=== PATIENT | male | born 1970 | race Caucasian/White ===

== ENCOUNTER 2016-11-01 16:30 | Emergency (ER) | payer SELFPAY ==
[2016-11-01] MEDS ORDERED: OXYCODONE-ACETAMINOPHEN 5-325 MG TABLET PO ONE (17:01)
[2016-11-01] MEDS ORDERED: ONDANSETRON 4 MG TAB.RAPDIS PO ONE (17:01)
--- NOTE | 2016-11-01 17:07 | ER Document Report ---
ED Medical Screen (RME) - General Chief Complaint: Low Back Pain Stated Complaint: BACK PAIN Time seen by provider: 17:04 Mode of Arrival: Ambulatory Information source: Patient Notes: 46-year-old male was sweeping and then went forward from the waist to it up Dust into the dust pain and developed a popping and tightness in his low back. He was able to get into the bathtub to try to ease the pain but then he got out of the bathtub and sat down on the toilet and at that point he couldn't almost get off the toilet he had to lay on the floor this occurred at 2:00 pm and when it wasn't getting any better he called EMS to bring him to the hospital. No saddle anesthesia. He does have some tingling in all of his toes. Only other time he had back pain was in the 90s was a twisting injury and he went to physical therapy. TRAVEL OUTSIDE OF THE [place] IN LAST 30 DAYS: No - Related Data Allergies/Adverse Reactions: ibuprofen Allergy (Verified 03/27/16 13:05) Past Medical History - Past Medical History Cardiac Medical History: Reports: Hx Hypercholesterolemia, Hx Hypertension - did not take lisinopril today Denies: Hx Atrial Fibrillation, Hx Congestive Heart Failure, Hx Heart Attack Pulmonary Medical History: Denies: Hx Asthma, Hx Bronchitis, Hx COPD, Hx Pneumonia, Hx Tuberculosis Neurological Medical History: Reports: Hx Migraine. Denies: Hx Seizures Endocrine Medical History: Denies: Hx Diabetes Mellitus Type 1, Hx Diabetes Mellitus Type 2 Renal/ Medical History: Reports: Hx Kidney Stones. Denies: Hx End Stage Renal Disease GI Medical History: Denies: Hx Gastroesophageal Reflux Disease, Hx Hiatal Hernia , Hx Ulcer Musculoskeltal Medical History: Denies Hx Arthritis Psychiatric Medical History: Denies: Hx Attention Deficit Hyperactivity Disorder, Hx Bipolar Disorder, Hx Depression, Hx Schizophrenia Past Surgical History: Reports: Hx Herniorrhaphy - Immunizations Hx Diphtheria, Pertussis, Tetanus Vaccination: Yes Physical Exam - Vital signs Vitals: Temp Pulse Resp BP Pulse Ox 98.4 F 83 18 129/80 H 94 11/01/16 16:56 11/01/16 16:56 11/01/16 16:56 11/01/16 16:56 11/01/16 16:56 Course - Vital Signs Vital signs: Temp Pulse Resp BP Pulse Ox 98.4 F 83 18 129/80 H 94 11/01/16 16:56 11/01/16 16:56 11/01/16 16:56 11/01/16 16:56 11/01/16 16:56
[2016-11-01] MEDS ORDERED: LIDOCAINE 5% (700 MG) TRANSDERMAL ADH..PATCH TP ONE (18:34)
--- NOTE | 2016-11-01 19:15 | ER Document Report ---
ED General - General Chief Complaint: Low Back Pain Stated Complaint: BACK PAIN Mode of Arrival: Ambulatory TRAVEL OUTSIDE OF THE [place] IN LAST 30 DAYS: No - HPI Patient complains to provider of: lower back pain Notes: Patient coming in today for acute mid and right-sided back pain. States he was bending over to get some diastolic the floor when he felt a pop in his back since that time he was able ambulate to the bathroom since that time is difficulty in ambulation and coming to the ER for further evaluation. States his history of bulging disks. Patient denies any urinary or bowel incontinence. Denies any numbness tingling in the perineal region. Patient is sitting crosslegged in the bed upon my evaluation. - Related Data Allergies/Adverse Reactions: ibuprofen Allergy (Verified 03/27/16 13:05) Past Medical History - General Information source: Patient - Social History Smoking Status: Unknown if Ever Smoked Family History: Reviewed & Not Pertinent, Other Patient has suicidal ideation: No Patient has homicidal ideation: No - Past Medical History Cardiac Medical History: Reports: Hx Hypercholesterolemia, Hx Hypertension - did not take lisinopril today Denies: Hx Atrial Fibrillation, Hx Congestive Heart Failure, Hx Heart Attack Pulmonary Medical History: Denies: Hx Asthma, Hx Bronchitis, Hx COPD, Hx Pneumonia, Hx Tuberculosis Neurological Medical History: Reports: Hx Migraine. Denies: Hx Seizures Endocrine Medical History: Denies: Hx Diabetes Mellitus Type 1, Hx Diabetes Mellitus Type 2 Renal/ Medical History: Reports: Hx Kidney Stones. Denies: Hx End Stage Renal Disease, Hx Peritoneal Dialysis GI Medical History: Denies: Hx Gastroesophageal Reflux Disease, Hx Hiatal Hernia , Hx Ulcer Musculoskeltal Medical History: Denies Hx Arthritis Psychiatric Medical History: Denies: Hx Attention Deficit Hyperactivity Disorder, Hx Bipolar Disorder, Hx Depression, Hx Schizophrenia Past Surgical History: Reports: Hx Herniorrhaphy - Immunizations Hx Diphtheria, Pertussis, Tetanus Vaccination: Yes Review of Systems - Review of Systems Constitutional: No symptoms reported EENT: No symptoms reported Cardiovascular: No symptoms reported Respiratory: No symptoms reported Gastrointestinal: No symptoms reported Genitourinary: No symptoms reported Male Genitourinary: No symptoms reported Musculoskeletal: Back pain Skin: No symptoms reported Hematologic/Lymphatic: No symptoms reported Neurological/Psychological: No symptoms reported -: Yes All other systems reviewed and negative Physical Exam - Vital signs Vitals: Temp Pulse Resp BP Pulse Ox 98.4 F 83 18 129/80 H 94 11/01/16 16:56 11/01/16 16:56 11/01/16 16:56 11/01/16 16:56 11/01/16 16:56 Interpretation: Normal - General General appearance: Appears well, Alert - HEENT Head: Normocephalic, Atraumatic Eyes: Normal Pupils: PERRL - Respiratory Respiratory status: No respiratory distress Chest status: Nontender Breath sounds: Normal Chest palpation: Normal - Cardiovascular Rhythm: Regular Heart sounds: Normal auscultation Murmur: No - Abdominal Inspection: Normal Distension: No distension Bowel sounds: Normal Tenderness: Nontender Organomegaly: No organomegaly - Back Back: Normal, Tender - Patient is midline starting at L2 going down to the sacral region. Patient also has has paraspinal tenderness on the right side. Patient has no numbness or tingling in the perineal region no saddle anesthesias upon examination. Deep tendon reflexes at the knee are intact. Babinski is normal. Sensation distal is normal. - Extremities General upper extremity: Normal inspection, Nontender, Normal color, Normal ROM , Normal temperature General lower extremity: Normal inspection, Nontender, Normal color, Normal ROM , Normal temperature, Normal weight bearing. No: Oneida's sign - Neurological Neuro grossly intact: Yes Cognition: Normal Orientation: AAOx4 Caldwell Coma Scale Eye Opening: Spontaneous Caldwell Coma Scale Verbal: Oriented Portia Coma Scale Motor: Obeys Commands Caldwell Coma Scale Total: 15 Speech: Normal Motor strength normal: LUE, RUE, LLE, RLE Sensory: Normal - Psychological Associated symptoms: Normal affect, Normal mood - Skin Skin Temperature: Warm Skin Moisture: Dry Skin Color: Normal Course - Re-evaluation Re-evalutation: 11/01/16 19:13 The patient presents with low back pain without signs of spinal cord compression , cauda equina syndrome, infection, aneurysm, or other serious etiology. The patient is neurologically intact. Given the extremely low risk of these diagnoses further testing and evaluation for these possibilities does not appear to be indicated at this time. The patient has been instructed to return if the symptoms worsen or change in any way. .. - Vital Signs Vital signs: Temp Pulse Resp BP Pulse Ox 98.4 F 83 18 129/80 H 94 11/01/16 16:56 11/01/16 16:56 11/01/16 16:56 11/01/16 16:56 11/01/16 16:56 Discharge - Discharge Clinical Impression: Low back pain Qualifiers: Chronicity: acute Back pain laterality: unspecified Sciatica presence: unspecified whether sciatica present Qualified Code(s): M54.5 - Low back pain Instructions: Low Back Pain ([facility]), Oral Narcotic Medication ([facility]), Stretching Exercises for the Back ([facility]) Additional Instructions: Please follow-up with your primary care physician. This time x-ray showed no serious etiology for your back pain. Rest ice and heat for the initial treatments for any back pain. Symptoms worse come back and see us here in ER. Prescriptions: Lidocaine [Lidoderm 5% (700 mg) Transdermal Patch] 1 patch TP DAILY #30 adh..patch Oxycodone HCl 5 mg PO Q6 #30 tablet Prednisone [Deltasone 20 mg Tablet] 3 tab PO DAILY 5 Days Forms: Return to Work
[2016-11-01] MEDS ORDERED: HYDROMORPHONE HCL INJ/PF 2 MG/ML AMPULE IM ONE (20:02)
[2016-11-01] MEDS ORDERED: PREDNISONE 20 MG TABLET PO ONE (20:03)
[2016-11-01 20:35] VITALS: BP 126/82
== END 2016-11-01 20:15 | disposition home or self-care (01) ==
LOC: ER 16:30
DX: M54.5 Low back pain (principal)
CPT/HCPCS: 99283; 96372; 72110; S0119; J1170; J7512

== ENCOUNTER → 2017-01-30 | Outpatient (CLI) | payer OTHER ==
[2017-01-30 12:10] LABS: CHOLESTEROL 246.94 mg/dL (0-200); Direct HDL 53 mg/dL (>40); TRIGLYCERIDES 187 mg/dL (<150)
[2017-01-30 12:20] LABS: DIRECT LDL 164 mg/dL (<100)
[2017-01-30 12:29] LABS: VLDL CHOLESTEROL 37.4 mg/dL (10-31)
== END ==
LOC: CCC 11:07
DX: E78.4 Other hyperlipidemia (principal)
CPT/HCPCS: 36415; 80061; 83036

== ENCOUNTER → 2017-08-10 | Outpatient (CLI) | payer OTHER ==
[2017-08-10 09:56] LABS: ABSOLUTE EOSINOPHILS # (AUTO) 0.1 10^3/uL (0.0-0.6); ABSOLUTE LYMPHOCYTES (AUTO) 1.2 10^3/uL (0.5-4.7); ABSOLUTE MONOCYTES (AUTO) 0.5 10^3/uL (0.1-1.4); ABSOLUTE NEUT (AUTO) 3.7 10^3/uL (1.7-8.2); BASOPHILS % (AUTO) 0.4 % (0-2); EOSINOPHILS % (AUTO) 2.5 % (0-6); HEMATOCRIT 40.7 % (37.9-51.0); HGB HCT DIFFERENCE 1.3; MEAN CORPUSCULAR HGB CONC 34.5 g/dL (32.0-36.0); MEAN CORPUSCULAR VOLUME 84 fl (80-97); MONOCYTES % (AUTO) 8.5 % (3-13); RED BLOOD COUNT 4.84 10^6/uL (4.35-5.55); RED CELL DISTRIBUTION WIDTH 14.3 % (11.5-14.0); SEGMENTED NEUTROPHILS % (AUTO) 67.6 % (42-78); WHITE BLOOD COUNT 5.5 10^3/uL (4.0-10.5)
[2017-08-10 10:16] LABS: ALANINE AMINOTRANSFERASE 86 U/L (21-72); ALBUMIN 4.7 g/dL (3.5-5.0); ALKALINE PHOSPHATASE 99 U/L (38-126); ANION GAP 15 (5-19); ASPARTATE AMINO TRANSFERASE 46 U/L (17-59); BILIRUBIN,DIRECT 0.3 mg/dL (0.0-0.4); BILIRUBIN,TOTAL 0.6 mg/dL (0.2-1.3); BLOOD UREA NITROGEN 13 mg/dL (7-20); CALCIUM 9.3 mg/dL (8.4-10.2); CARBON DIOXIDE 25 mmol/L (22-30); CHLORIDE 105 mmol/L (98-107); CHOLESTEROL 176.69 mg/dL (0-200); CREATININE RESULT 0.88 mg/dL (0.52-1.25); Direct HDL 42 mg/dL (>40); GLUCOSE 124 mg/dL (75-110); POTASSIUM 3.8 mmol/L (3.6-5.0); SODIUM 145.4 mmol/L (137-145); TOTAL PROTEIN 6.9 g/dL (6.3-8.2); TRIGLYCERIDES 222 mg/dL (<150)
[2017-08-10 10:26] LABS: DIRECT LDL 109 mg/dL (<100)
[2017-08-10 10:29] LABS: VLDL CHOLESTEROL 44.4 mg/dL (10-31)
== END ==
LOC: CCC 09:00
DX: I10 Essential (primary) hypertension (principal); E78.4 Other hyperlipidemia
CPT/HCPCS: 36415; 80053; 80061; 83036; 85025

== ENCOUNTER → 2018-01-26 | Outpatient (CLI) | payer OTHER ==
[2018-01-26 10:40] LABS: ALANINE AMINOTRANSFERASE 66 U/L (21-72); ALBUMIN 4.7 g/dL (3.5-5.0); ALKALINE PHOSPHATASE 90 U/L (38-126); ANION GAP 13 (5-19); ASPARTATE AMINO TRANSFERASE 38 U/L (17-59); BILIRUBIN,DIRECT 0.2 mg/dL (0.0-0.4); BILIRUBIN,TOTAL 0.5 mg/dL (0.2-1.3); BLOOD UREA NITROGEN 11 mg/dL (7-20); CALCIUM 9.7 mg/dL (8.4-10.2); CARBON DIOXIDE 31 mmol/L (22-30); CHLORIDE 102 mmol/L (98-107); CHOLESTEROL 205.65 mg/dL (0-200); GLUCOSE 125 mg/dL (75-110); POTASSIUM 4.1 mmol/L (3.6-5.0); SODIUM 145.7 mmol/L (137-145); TOTAL PROTEIN 7.7 g/dL (6.3-8.2); TRIGLYCERIDES 284 mg/dL (<150)
[2018-01-26 10:50] LABS: DIRECT LDL 126 mg/dL (<100)
[2018-01-26 10:56] LABS: VLDL CHOLESTEROL 56.8 mg/dL (10-31)
== END ==
LOC: CCC 09:34
DX: I10 Essential (primary) hypertension (principal); E78.5 Hyperlipidemia, unspecified
CPT/HCPCS: 36415; 80053; 80061

== ENCOUNTER 2018-05-02 14:34 | Emergency (ER) | payer SELFPAY ==
--- NOTE | 2018-05-02 15:31 | ER Document Report ---
ED Medical Screen (RME) - General TRAVEL OUTSIDE OF THE [place] IN LAST 30 DAYS: No <ELIAZAR PORTER - Last Filed: 05/02/18 15:30> <MITULJUSTIN - Last Filed: 05/02/18 17:55> - General Chief Complaint: Abdominal Pain Stated Complaint: ABDOMINAL PAIN Time Seen by Provider: 05/02/18 15:28 Notes: 47 years old male presents today with abdominal pain, had not had any bowel movement for 12 days, taking Percocet 10 mg a day. And have ventral hernia, 2 inguinal hernias. Nauseous no vomiting. Denies any fever chills or other constitutional symptoms. Distended abdomen visible ventral hernia, positive bowel sounds (ELIAZAR PORTER) - Related Data Allergies/Adverse Reactions: ibuprofen Allergy (Verified 05/02/18 14:35) Past Medical History - Social History Chew tobacco use (# tins/day): No Frequency of alcohol use: Occasional Drug Abuse: None - Past Medical History Cardiac Medical History: Reports: Hx Hypercholesterolemia, Hx Hypertension - did not take lisinopril today Denies: Hx Atrial Fibrillation, Hx Congestive Heart Failure, Hx Heart Attack Pulmonary Medical History: Denies: Hx Asthma, Hx Bronchitis, Hx COPD, Hx Pneumonia, Hx Tuberculosis Neurological Medical History: Reports: Hx Migraine. Denies: Hx Seizures Endocrine Medical History: Denies: Hx Diabetes Mellitus Type 1, Hx Diabetes Mellitus Type 2 Renal/ Medical History: Reports: Hx Kidney Stones. Denies: Hx End Stage Renal Disease, Hx Peritoneal Dialysis GI Medical History: Reports: Hx Hiatal Hernia. Denies: Hx Gastroesophageal Reflux Disease, Hx Ulcer Musculoskeltal Medical History: Denies Hx Arthritis Psychiatric Medical History: Denies: Hx Attention Deficit Hyperactivity Disorder, Hx Bipolar Disorder, Hx Depression, Hx Schizophrenia Past Surgical History: Reports: Hx Herniorrhaphy - Immunizations Hx Diphtheria, Pertussis, Tetanus Vaccination: Yes <ELIAZAR PORTER - Last Filed: 05/02/18 15:30> - Vital signs Vitals: Temp Pulse Resp BP Pulse Ox 98.7 F 96 18 131/75 H 96 05/02/18 14:44 05/02/18 14:44 05/02/18 14:44 05/02/18 14:44 05/02/18 14:44 Course <ELIAZAR PORTER - Last Filed: 05/02/18 15:30> - Laboratory Result Diagrams: 05/02/18 16:32 05/02/18 16:32 <JUSTIN BAUMAN - Last Filed: 05/02/18 17:55> - Re-evaluation Re-evalutation: 05/02/18 17:50 Upon discharge, patient was very adamant about having Dr. Culp sign that he was a second opinion provider on the discharge instruction paper, and I would not be having him sign basic discharge instructions and can write everything for him that is already documented in the EMR system. I explained to him the legalities of a PA/physician relationship and supervising laws within the state. I also thoroughly reviewed that Dr. Culp did document his evaluation of him within my note and upon completion of this note he may call medical records to obtain it. Patient and his mother are continuing to be upset and have no confidence in my or Dr. Culp's medical judgment at this time. Patient has repeatedly threatened lawsuit should something happen when he leaves. (JUSTIN BAUMAN) - Vital Signs Vital signs: Temp Pulse Resp BP Pulse Ox 98.7 F 96 18 131/75 H 96 05/02/18 14:44 05/02/18 14:44 05/02/18 14:44 05/02/18 14:44 05/02/18 14:44 - Laboratory Laboratory results interpreted by me: 05/02/18 05/02/18 05/02/18 14:45 16:32 16:32 Hgb 13.0 L RDW 18.6 H Sodium 145.8 H Glucose 194 H Urine Glucose (UA) >=500 H Doctor's Discharge <ELIAZAR PORTER - Last Filed: 05/02/18 15:30> <JUSTIN BAUMAN - Last Filed: 05/02/18 17:55> - Discharge Clinical Impression: Diastasis recti Condition: Stable Disposition: HOME, SELF-CARE Additional Instructions: Maintain adequate fluid and food intake high fiber diet Stool softener/laxative as directed tylenol if needed Monitor for any worsening symptoms Make sure you are staying hydrated enough to urinate and have normal BM's Recheck with your PCM in 3-5 days Schedule an appointment with a general surgeon for further evaluation and management Return to the ED with any worsening symptoms and/or development of fever, headache, chest pain, palpitations, syncope, shortness of breath, trouble breathing, abdominal pain, n/v/d, blood in stool/urine, weakness, or other worsening symptoms that are concerning to you. Prescriptions: Magnesium Citrate [Citrate of Magnesia 296 ml Bottle] 296 ml PO ONCE PRN #1 bottle PRN Reason: Forms: Elevated Blood Pressure Referrals: [facility] [Primary Care Provider] - Follow up in 3-5 days MARGARITO VANEGAS MD [ACTIVE STAFF] - Follow up as needed
--- NOTE | 2018-05-02 16:18 | RADIOLOGY REPORT (SQ) ---
EXAM DESCRIPTION: KUB/ABDOMEN (SINGLE VIEW) COMPLETED DATE/TIME: 05/02/2018 4:02 pm REASON FOR STUDY: Abdominal pain COMPARISON: None. NUMBER OF VIEWS: One view. TECHNIQUE: Supine radiographic image of the abdomen acquired. LIMITATIONS: None. FINDINGS: BOWEL GAS PATTERN: Normal bowel gas pattern. No dilated loops. CALCIFICATIONS: No suspicious calcifications. SOFT TISSUES: No gross mass or suggestion of organomegaly. HARDWARE: None in the abdomen. BONES: No acute fracture. No worrisome bone lesions. OTHER: No other significant finding. IMPRESSION: NO RADIOGRAPHIC EVIDENCE FOR ACUTE ABDOMINAL DISEASE. TECHNICAL DOCUMENTATION: JOB ID: [id number] [employer]- All Rights Reserved Reading location - IP/workstation name: [email or web address]
[2018-05-02 16:30] LABS: APPEARANCE,URINE CLEAR; BILIRUBIN,URINE NEGATIVE (NEGATIVE); COLOR,URINE YELLOW; GLUCOSE, URINE >=500 mg/dL (NEGATIVE); KETONES,URINE NEGATIVE (NEGATIVE); LEUKOCYTE ESTERASE,URINE NEGATIVE (NEGATIVE); NITRITE,URINE NEGATIVE (NEGATIVE); PROTEIN,URINE NEGATIVE (NEGATIVE); URINE SPECIFIC GRAVITY 1.016; UROBILINOGEN,URINE NEGATIVE mg/dL (<2.0)
[2018-05-02] MEDS ORDERED: HYDROCODONE/ACETAMINOPHEN 5-325 MG TABLET PO ONE (16:40)
[2018-05-02 16:45] LABS: URINE AMPHETAMINES SCREEN NEGATIVE; URINE BARBITURATES SCREEN NEGATIVE; URINE BENZODIAZEPINES SCREEN NEGATIVE; URINE COCAINE SCREEN NEGATIVE; URINE MARIJUANA (THC) SCREEN NEGATIVE; URINE METHADONE SCREEN NEGATIVE; URINE PHENCYCLIDINE SCREEN NEGATIVE
[2018-05-02 16:47] LABS: ABSOLUTE EOSINOPHILS # (AUTO) 0.1 10^3/uL (0.0-0.6); ABSOLUTE LYMPHOCYTES (AUTO) 1.1 10^3/uL (0.5-4.7); ABSOLUTE MONOCYTES (AUTO) 0.5 10^3/uL (0.1-1.4); ABSOLUTE NEUT (AUTO) 3.7 10^3/uL (1.7-8.2); BASOPHILS % (AUTO) 0.3 % (0-2); EOSINOPHILS % (AUTO) 2.3 % (0-6); HEMATOCRIT 38.4 % (37.9-51.0); LYMPHOCYTES % (AUTO) 19.8 % (13-45); MEAN CORPUSCULAR HEMOGLOBIN 29.2 pg (27.0-33.4); MEAN CORPUSCULAR HGB CONC 33.9 g/dL (32.0-36.0); MEAN CORPUSCULAR VOLUME 86 fl (80-97); MONOCYTES % (AUTO) 8.8 % (3-13); PLATELET COUNT 176 10^3/uL (150-450); RED BLOOD COUNT 4.46 10^6/uL (4.35-5.55); RED CELL DISTRIBUTION WIDTH 18.6 % (11.5-14.0); SEGMENTED NEUTROPHILS % (AUTO) 68.8 % (42-78); TOTAL CELLS COUNTED % (AUTO) 100 %; WHITE BLOOD COUNT 5.4 10^3/uL (4.0-10.5)
[2018-05-02 17:02] LABS: ALANINE AMINOTRANSFERASE 72 U/L (21-72); ALBUMIN 4.4 g/dL (3.5-5.0); ALKALINE PHOSPHATASE 104 U/L (38-126); ANION GAP 12 (5-19); ASPARTATE AMINO TRANSFERASE 53 U/L (17-59); BILIRUBIN,DIRECT 0.2 mg/dL (0.0-0.4); BILIRUBIN,TOTAL 0.5 mg/dL (0.2-1.3); BLOOD UREA NITROGEN 15 mg/dL (7-20); CALCIUM 9.7 mg/dL (8.4-10.2); CARBON DIOXIDE 30 mmol/L (22-30); CHLORIDE 104 mmol/L (98-107); GLUCOSE 194 mg/dL (75-110); LIPASE 97.2 U/L (23-300); POTASSIUM 4.8 mmol/L (3.6-5.0); SODIUM 145.8 mmol/L (137-145); TOTAL PROTEIN 7.5 g/dL (6.3-8.2)
--- NOTE | 2018-05-02 17:02 | ER Document Report ---
ED General <PRERNA CULP - Last Filed: 05/02/18 17:22> - General TRAVEL OUTSIDE OF THE [place] IN LAST 30 DAYS: No <JUSTIN BAUMAN - Last Filed: 05/02/18 17:39> - General Chief Complaint: Abdominal Pain Stated Complaint: ABDOMINAL PAIN Time Seen by Provider: 05/02/18 15:28 - HPI Notes: Patient is a 47-year-old male with a history of 2 inguinal hernia repairs, migraines, low back pain who presents to the ED complaining of constipation over the last 1.5 weeks as well as a bulge from his mid abdomen over the last 2 months. Patient states that he is also not had a good bowel movement since end of last month. Patient states that he does take narcotics almost daily. Patient states that he is eating and drinking without difficulties and is urinating normally. Patient states that he has pain in his abdomen primarily when he pushes against it or flexes at his trunk. Patient states that that is when the bulge is most noticeable. Patient states that he was referred to the ED by his physician for evaluation. Denies any headache, fever, neck pain, URI , sore throat, chest pain, palpitations, syncope, cough, shortness of breath, wheeze, dyspnea, nausea/vomiting/diarrhea, urinary retention, dysuria, hematuria , loss of control of bowel or bladder, numbness/tingling, saddle anesthesia, muscle paralysis/weakness, or rash. (JUSTIN BAUMAN) - Related Data Allergies/Adverse Reactions: ibuprofen Allergy (Verified 05/02/18 14:35) Past Medical History - Social History Smoking Status: Current Every Day Smoker Chew tobacco use (# tins/day): No Frequency of alcohol use: Occasional Drug Abuse: None Family History: Reviewed & Not Pertinent, Other Patient has suicidal ideation: No Patient has homicidal ideation: No - Past Medical History Cardiac Medical History: Reports: Hx Hypercholesterolemia, Hx Hypertension - did not take lisinopril today Denies: Hx Atrial Fibrillation, Hx Congestive Heart Failure, Hx Heart Attack Pulmonary Medical History: Denies: Hx Asthma, Hx Bronchitis, Hx COPD, Hx Pneumonia, Hx Tuberculosis Neurological Medical History: Reports: Hx Migraine. Denies: Hx Seizures Endocrine Medical History: Denies: Hx Diabetes Mellitus Type 1, Hx Diabetes Mellitus Type 2 Renal/ Medical History: Reports: Hx Kidney Stones. Denies: Hx End Stage Renal Disease, Hx Peritoneal Dialysis GI Medical History: Reports: Hx Hiatal Hernia. Denies: Hx Gastroesophageal Reflux Disease, Hx Ulcer Musculoskeletal Medical History: Denies Hx Arthritis Psychiatric Medical History: Denies: Hx Attention Deficit Hyperactivity Disorder, Hx Bipolar Disorder, Hx Depression, Hx Schizophrenia Past Surgical History: Reports: Hx Herniorrhaphy - Immunizations Hx Diphtheria, Pertussis, Tetanus Vaccination: Yes <JUSTIN BAUMAN - Last Filed: 05/02/18 17:39> Review of Systems - Review of Systems -: Yes All other systems reviewed and negative <JUSTIN BAUMAN - Last Filed: 05/02/18 17:39> Physical Exam <PRERNA CULP - Last Filed: 05/02/18 17:22> <JUSTIN BAUMAN - Last Filed: 05/02/18 17:39> - Vital signs Vitals: Temp Pulse Resp BP Pulse Ox 98.7 F 96 18 131/75 H 96 05/02/18 14:44 05/02/18 14:44 05/02/18 14:44 05/02/18 14:44 05/02/18 14:44 - Notes Notes: PHYSICAL EXAMINATION: GENERAL: Well-appearing, well-nourished and in no acute distress. Obese. HEAD: Atraumatic, normocephalic. EYES: Pupils equal round and reactive to light, extraocular movements intact, sclera anicteric, conjunctiva are normal. ENT: Nares patent and without discharge. oropharynx clear without exudates. No tonsilar hypertrophy or erythema. Moist mucous membranes. NECK: Normal range of motion, supple without lymphadenopathy LUNGS: Breath sounds clear to auscultation bilaterally and equal. No wheezes rales or rhonchi. HEART: Regular rate and rhythm without murmurs, rubs, gallops. ABDOMEN: Soft, nondistended abdomen. No guarding, no rebound. No masses appreciated. Normal bowel sounds present. No CVA tenderness bilaterally. + diastasis recti noted to the mid abdomen. no incarcerated hernia. + mild tenderness associated to palpation of the abd muscles b/l diastasis recti. Rectal: pt declined. Musculoskeletal: FROM to passive/active. Strength 5+/5. Extremities: No cyanosis, clubbing, or edema b/l. Peripheral pulses 2+. Capillary refill less than 3 seconds. NEUROLOGICAL: Normal speech, normal gait. PSYCH: Normal mood, normal affect. SKIN: Warm, Dry, normal turgor, no rashes or lesions noted. (JUSTIN BAUMAN) Course - Laboratory Result Diagrams: 05/02/18 16:32 05/02/18 16:32 <PRERNA CULP - Last Filed: 05/02/18 17:22> - Laboratory Result Diagrams: 05/02/18 16:32 05/02/18 16:32 <JUSTIN BAUMAN - Last Filed: 05/02/18 17:39> - Re-evaluation Re-evalutation: 05/02/18 17:22 Personally examined patient is adamant by myself. Patient mildly obese laying flat no signs of acute abnormality. Upon making the patient do a half sit up patient's abdominal examination is consistent with a rectus diathesis. Explained to patient this is due to weakening of the abdominal wall muscles that this time and not requiring emergent surgery. (PRERNA CULP) 05/02/18 17:30 Patient is an afebrile, well-hydrated, 47-year-old male who presents to the ED with diastasis recti to the abdominal wall as well as constipation. Vitals are acceptable without any significant tachycardia, tachypnea, or hypoxia. PE is otherwise unremarkable. CBC, CMP, lipase, urinalysis are unremarkable for any acute pathology aside from elevated glucose. Acute abdomen series also unremarkable for any acute pathology. I did review with the patient that this is not a surgical emergency, the patient was not happy with this and with talking to his mother when I returned into the room thereafter to perform a rectal exam. He stated that we were not going to do a thing for his "hernia" and that he should have went to [place]. Patient then declined the rectal exam to be performed to investigate for any impaction. I did have Dr. Culp evaluate this patient as the patient was not happy with my response that I do not believe this to be a surgical emergency and that he needs to have this taken care of as an elective outpatient surgical procedure. Dr. Culp evaluated the patient as well and is in agreement with my assessment at this time and disposition. No other labs or imaging warranted at this time based on H&P. Low suspicion/risk for acute appendicitis, bowel obstruction, acute cholecystitis, perforated diverticulitis, incarcerated hernia, pancreatitis, perforated ulcer, peritonitis, sepsis, or other systemic emergent condition at this time. Patient is aware that his condition can change from initial presentation and he needs to monitor symptoms closely and seek medical attention if any acute changes. I will send him home with a rx for mag citrate and referral to a general surgeon. conservative measures otherwise for symptoms. Recheck with PCM in 3-5 days. Return to the ED with any worsening/ concerning symptoms otherwise as reviewed in discharge. Patient is in agreement. Pt was angered throughout our examinations, and I did try to explain to him that a surgeon will not perform an emergent surgery for diastasis recti. (JUSTIN BAUMAN) - Vital Signs Vital signs: Temp Pulse Resp BP Pulse Ox 98.7 F 96 18 131/75 H 96 05/02/18 14:44 05/02/18 14:44 05/02/18 14:44 05/02/18 14:44 05/02/18 14:44 - Laboratory Laboratory results interpreted by me: 05/02/18 05/02/18 05/02/18 14:45 16:32 16:32 Hgb 13.0 L RDW 18.6 H Sodium 145.8 H Glucose 194 H Urine Glucose (UA) >=500 H Discharge <PRERNA CULP - Last Filed: 05/02/18 17:22> <JUSTIN BAUMAN - Last Filed: 05/02/18 17:39> - Discharge Clinical Impression: Diastasis recti Condition: Stable Disposition: HOME, SELF-CARE Additional Instructions: Maintain adequate fluid and food intake high fiber diet Stool softener/laxative as directed tylenol if needed Monitor for any worsening symptoms Make sure you are staying hydrated enough to urinate and have normal BM's Recheck with your PCM in 3-5 days Schedule an appointment with a general surgeon for further evaluation and management Return to the ED with any worsening symptoms and/or development of fever, headache, chest pain, palpitations, syncope, shortness of breath, trouble breathing, abdominal pain, n/v/d, blood in stool/urine, weakness, or other worsening symptoms that are concerning to you. Prescriptions: Magnesium Citrate [Citrate of Magnesia 296 ml Bottle] 296 ml PO ONCE PRN #1 bottle PRN Reason: Forms: Elevated Blood Pressure Referrals: [facility] [Primary Care Provider] - Follow up in 3-5 days MARGARITO VANEGAS MD [ACTIVE STAFF] - Follow up as needed
[2018-05-02 17:52] VITALS: BP 142/78
== END 2018-05-02 18:03 | disposition home or self-care (01) ==
LOC: ER 14:34
DX: Q79.59 Other congenital malformations of abdominal wall (principal); K59.00 Constipation, unspecified; I10 Essential (primary) hypertension; R10.9 Unspecified abdominal pain; F17.200 Nicotine dependence, unspecified, uncomplicated; E66.9 Obesity, unspecified; Z68.35 Body mass index [BMI] 35.0-35.9, adult; Z79.899 Other long term (current) drug therapy
CPT/HCPCS: 36415; 51701; 74018; 80053; 80307; 81001; 83690; 85025; 99284

== ENCOUNTER → 2018-05-03 | Outpatient (CLI) | payer OTHER ==
--- NOTE | 2018-05-03 11:32 | RADIOLOGY REPORT (SQ) ---
EXAM DESCRIPTION: CTA ABDOMEN COMPLETED DATE/TIME: 05/03/2018 11:19 am REASON FOR STUDY: ABD PAIN R10.9 UNSPECIFIED ABDOMINAL PAIN COMPARISON: CT abdomen pelvis 11/15/2015 TECHNIQUE: CT scan of the abdominal aorta extending to the iliac bifurcation performed with and with out intravenous contrast using helical scanning technique with dynamic intravenous contrast injection . Images reviewed with lung, soft tissue, and bone windows. Reconstructed coronal and sagittal MPR im ages reviewed. All images stored on PACS. Advanced 3D imaging as volume rendering, MIPS, SSD performed? yes All CT scanners at this facility use dose modulation, iterative reconstruction, and/or weight based d osing when appropriate to reduce radiation dose to as low as reasonably achievable (ALARA). [facility]: Dose Right [facility]: CareDose [facility]: Dose Right [facility]: Teradose 4D [facility]: [place] CONTRAST TYPE AND DOSE: contrast/concentration: Isovue 350.00 mg/ml; Total Contrast Delivered: 60.0 ml; Total Saline Delivered: 80.0 ml RENAL FUNCTION: Creatinine 0.86 LIMITATIONS: None. FINDINGS: NON-CONTRASTED IMAGING: No significant renal or bladder calcifications. No other significa nt organ calcifications. POST-CONTRAST IMAGING: AORTA AND VESSELS: No aneurysm. No dissection. Renal arteries, SMA, celiac without stenosis. LUNG BASES: No significant findings. No nodules or infiltrates. Small hiatal hernia LIVER: Normal size. No masses or dilated ducts. Profound fatty infiltration of the liver with focal sparing along the gallbladder fossa SPLEEN: Normal size. No focal lesions. PANCREAS: No masses. No significant calcifications. No adjacent inflammation or peripancreatic fluid collections. Pancreatic duct not dilated. GALLBLADDER: No identified stones by CT criteria. No inflammatory changes to suggest cholecystitis. ADRENAL GLANDS: No significant masses or asymmetry. RIGHT KIDNEY AND URETER: No mass, calculi or urinary tract obstruction. LEFT KIDNEY AND URETER: No mass, calculi or urinary tract obstruction. RETROPERITONEUM: No retroperitoneal adenopathy, hemorrhage or masses. BOWEL AND PERITONEAL CAVITY: No masses or inflammatory changes. No free fluid or peritoneal masses. APPENDIX: Normal. ABDOMINAL WALL: No masses. No hernias. BONY STRUCTURES: No significant or acute findings. 3-D IMAGING: Confirms the above findings. OTHER: No other significant finding. IMPRESSION: NO ABDOMINAL AORTIC ANEURYSM, DISSECTION OR SIGNIFICANT STENOSIS. NO SIGNIFICANT FINDING S IN THE ABDOMEN. TECHNICAL DOCUMENTATION: JOB ID: [id number] Quality ID # [id number]: Final reports with documentation of one or more dose reduction techniques (e.g., Au tomated exposure control, adjustment of the mA and/or kV according to patient size, use of iterative reconstruction technique) 2010 [employer]- All Rights Reserved Reading location - IP/workstation name: [email or web address]
== END ==
LOC: RAD 10:33
DX: R10.9 Unspecified abdominal pain (principal)
CPT/HCPCS: 74175